=== PATIENT | female | born 1985 | race Caucasian/White ===

== ENCOUNTER 2016-12-12 12:31 | Emergency (ER) | payer BC ==
[2016-12-12] MEDS ORDERED: Sodium Chloride 0.9% 500 ML IV ONE (13:02)
[2016-12-12] MEDS ORDERED: Sodium Chloride 0.9% 10 ML Syringe FLUSH PRN (13:03)
[2016-12-12] MEDS ORDERED: Ondansetron 4 MG/2 ML SDV IVPUSH ONE (13:13)
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
[2016-12-12] MEDS ORDERED: Sodium Chloride 0.9% 1,000 ML ONE (13:50)
[2016-12-12] MEDS ORDERED: Ondansetron 4 MG/2 ML SDV ONE (13:50)
[2016-12-12] MEDS ORDERED: HYDROmorphone 0.5 MG/0.5 ML Syringe IVPUSH ONE (13:55)
[2016-12-12] MEDS ORDERED: HYDROmorphone 0.5 MG/0.5 ML Syringe ONE (14:05)
--- NOTE | 2016-12-12 14:23 | US ---
Limited abdominal ultrasound: Multiple real-time images of the right upper right abdomen were obtained. Visualized pancreas appears within normal limits. Liver shows no focal parenchymal abnormality. Gallbladder shows no gallstones. No gallbladder wall thickening or biliary duct dilatation is seen. Right kidney shows no hydronephrosis or mass. Right kidney has a length of 11.0 cm. Inferior vena cava is patent. Portal vein shows hepatopedal flow. Impression: 1. No abnormality is appreciated on right upper quadrant abdominal ultrasound. Diagnostic code #1
--- NOTE | 2016-12-15 08:43 | CONS ---
CONSULTING PHYSICIAN: Humberto Valenzuela DATE OF CONSULTATION: 12/12/2016 REQUESTING PHYSICIAN: Eber Lynne MD. I thank you for asking me to see this nice lady in consultation. She presents today with basically right upper quadrant pain, which she woke up with from a sound sleep. In the past week or so, she has had some diarrhea and some nausea and vomiting and some discomfort, but this time the pain was severe enough that she presented I believe to the [facility] and was given some medications, but she came here basically because her pain is sufficient enough that she might need to be hospitalized. She is a 31-year-old nulliparous female patient, who presents with sudden onset of right upper quadrant pain this morning. She had an ultrasound prior to my examination and also some narcotic. The history she gave is that as the above. She did have some good days and bad days over the past week, mostly with maybe a slight fever and right upper quadrant pain and some of it going to through to her back. She was seen this morning in the [facility] and liver tests were all slightly on the high side of normal, but none of any salient findings. Bilirubin is normal and the alkaline phosphatase is normal. She does have an elevated CRP of 4.6, I believe, and GGT of 307 and lipase of 156. As stated previously, her bilirubin is normal. On examination, she does have tenderness in her right upper quadrant, which is diminished. She does have a negative Tan sign. I do not feel any mass in the right upper quadrant, but her pain is basically in the area of her midclavicular line at the right costochondral junction. Bowel sounds are normal. The remainder of the abdominal examination is normal with no masses and no other abnormalities. No flank tenderness. At present with an ultrasound having been performed, the pancreas is normal to ultrasound examination, liver shows no focal parenchymal abnormality, the gallbladder shows no gallstones, and no biliary duct dilatation is seen. There is no hydronephrosis or mass in the right kidney. With all of this, it may well be that she will have a problem with this abdominal pain, which will go and for which we may not find a cause, but one has to think of such things as a calculous cholecystitis and along that line and so I recommended to Dr. Lynne that she obtain a HIDA scan, which she will check the ejection fraction and then may give us more information and evaluation of her urinalysis shows 0-2 red blood cells per high-power field, so I do not think that this is a nephrolithiasis. She will be returned to [facility] for further evaluation and will go from there. I thank you again for asking me to see her in consultation. MMODAL /[id number]
== END 2016-12-12 16:30 | disposition home or self-care (01) ==
LOC: JD.ED 12:31
DX: R10.11 Right upper quadrant pain (principal); R10.12 Left upper quadrant pain; R11.2 Nausea with vomiting, unspecified; I10 Essential (primary) hypertension; Z91.013 Allergy to seafood; Z79.899 Other long term (current) drug therapy; Z88.0 Allergy status to penicillin
CPT/HCPCS: 36415; 76705; 82977; 83690; 86140; 96361; 96374; 96375; 99285; J1170; J2405; J7040; J7050; 99284

== ENCOUNTER 2018-04-21 21:43 | Emergency (ER) | payer BC ==
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
== END 2018-04-21 22:45 | disposition home or self-care (01) ==
LOC: JD.ED 21:43
DX: R07.89 Other chest pain (principal); I10 Essential (primary) hypertension; Z79.899 Other long term (current) drug therapy; Z88.0 Allergy status to penicillin; Z91.09 Other allergy status, other than to drugs and biological substances; Z88.8 Allergy status to other drugs, medicaments and biological substances; Z91.013 Allergy to seafood
CPT/HCPCS: 93005; 93010; 99284; 99284-25